=== PATIENT | female | born 1960 | race African-American/Black ===

== ENCOUNTER 2018-09-15 08:54 | Inpatient (IN) | payer MEDICAID, OTHER ==
[~2018-09-15] VITALS: Ht 167.6 cm; Wt 75.8 kg
[2018-09-15 10:30] LABS: BASOPHILS % 0.6 % (0.0-2.0); EOSINOPHILS % 0.2 % (0.0-5.0); HEMATOCRIT. 40.7 % (36.0-48.0); HEMOGLOBIN. 13.6 g/dL (12.0-16.0); LYMPHOCYTES % 15.9 % (20.0-50.0); MEAN CORPUSCULAR HEMOGLOBIN 30.6 pg (28.0-32.0); MEAN CORPUSCULAR VOLUME 91.7 fL (81.0-99.0); MONOCYTES % 5.4 % (2.0-8.0); NEUTROPHILS % 77.9 % (40.0-76.0); PLATELET 325 x1000/uL (130-400); RED BLOOD CELL COUNT 4.44 mill/uL (4.2-5.4); RED CELL DISTRIBUTION WIDTH 14.7 % (11.6-14.6)
[2018-09-15 10:36] LABS: CHLORIDE 103 mEq/L (98-107)
[2018-09-15] MEDS ORDERED: ASPIRIN 325MG EC TABLET PO ONE (11:45)
[2018-09-15] MEDS ORDERED: MAGNESIUM/ALUMINUM HYDROXIDE/SIMETHICONE 30ML UDC PO PRN (12:30)
[2018-09-15] MEDS ORDERED: DOCUSATE SODIUM 100MG CAPSULE PO PRN (12:30)
[2018-09-15] MEDS ORDERED: ONDANSETRON HCL 4MG/2ML INJ IV PRN (12:30)
[2018-09-15] MEDS ORDERED: HYDROCODONE/ACETAMINOPHEN 5/325MG TABLET PO PRN (12:30)
[2018-09-15] MEDS ORDERED: IPRATROPIUM/ALBUTEROL 0.5-3(2.5)MG/3ML NEB INH PRN (12:30)
[2018-09-15] MEDS ORDERED: ACETAMINOPHEN 325MG TABLET PO PRN (12:30)
[2018-09-15] MEDS ORDERED: CLONIDINE 0.1MG TABLET PO PRN (12:30)
[2018-09-15] MEDS ORDERED: GUAIFENESIN 200MG/10ML SUGAR FREE UDC PO PRN (12:30)
[2018-09-15 15:44] LABS: *BARBITURATES SCREEN URINE NEGATIVE (NEGATIVE); *BENZODIAZEPINES SCREEN URINE NEGATIVE (NEGATIVE); *COCAINE SCREEN URINE NEGATIVE (NEGATIVE); CANNABINOID URINE SCREEN NEGATIVE (NEGATIVE); METHADONE URINE SCREEN NEGATIVE (NEGATIVE); OPIATES URINE SCREEN NEGATIVE (NEGATIVE); PHENCYCLIDINE URINE SCREEN NEGATIVE (NEGATIVE)
[2018-09-15 15:45] LABS: *AMPHETAMINES SCREEN URINE NEGATIVE (NEGATIVE)
[2018-09-15] MEDS ORDERED: LISINOPRIL 10MG TABLET PO NR (15:45)
[2018-09-15] MEDS ORDERED: ENOXAPARIN 40MG/0.4ML SYR SUBCUT NR (19:00)
[2018-09-15 20:18] LABS: CREATINE KINASE 85 IU/L (26-192)
[2018-09-15 22:50] VITALS: BP 134/79
[2018-09-15 23:23] VITALS: BP 134/79
[2018-09-15] MEDS: LISINOPRIL 10MG TABLET PO SCH (23:43)
[2018-09-16] MEDS ORDERED: DEXTROSE 50% WATER 50ML SYRINGE IV PRN
[2018-09-16] MEDS ORDERED: ASPI-1158 PO (00:09)
[2018-09-16] MEDS ORDERED: LISI-604 PO (00:09)
[2018-09-16 04:00] VITALS: BP 127/78
[2018-09-16] MEDS ORDERED: BLOOD SUGAR DIAGNOSTIC STRIP TEST SCH (06:45)
[2018-09-16] MEDS ORDERED: INSULIN LISPRO 100 UNITS/ML SUBCUT SCH (07:15)
[2018-09-16 07:16] LABS: BASOPHILS % 0.5 % (0.0-2.0); EOSINOPHILS % 0.6 % (0.0-5.0); HEMATOCRIT. 40.5 % (36.0-48.0); HEMOGLOBIN. 13.6 g/dL (12.0-16.0); LYMPHOCYTES % 22.9 % (20.0-50.0); MEAN CORPUSCULAR HEMOGLOBIN 30.8 pg (28.0-32.0); MEAN CORPUSCULAR VOLUME 91.9 fL (81.0-99.0); MEAN PLATELET VOLUME 8.3 fl (7.4-10.4); MONOCYTES % 7.4 % (2.0-8.0); NEUTROPHILS % 68.6 % (40.0-76.0); PLATELET 303 x1000/uL (130-400); RED BLOOD CELL COUNT 4.41 mill/uL (4.2-5.4); RED CELL DISTRIBUTION WIDTH 14.6 % (11.6-14.6)
[2018-09-16 07:24] LABS: CHLORIDE 105 mEq/L (98-107)
[2018-09-16 07:33] LABS: LDL CHOLESTEROL 96 mg/dL (5-100)
[2018-09-16 07:35] LABS: HDL CHOLESTEROL 61 mg/dL (40-59)
[2018-09-16 08:00] VITALS: BP 141/77
[2018-09-16] MEDS ORDERED: ASPIRIN 81MG EC TABLET PO SCH (09:00)
[2018-09-16] MEDS: LISINOPRIL 10MG TABLET PO SCH (09:24)
[2018-09-16] MEDS ORDERED: REGADENOSON 0.4 MG/5 ML IV NR (09:30)
[2018-09-16 12:00] VITALS: BP 135/72
[2018-09-16] MEDS ORDERED: REGADENOSON 0.4 MG/5 ML IV ONE (12:14)
[2018-09-16 15:15] VITALS: BP 122/79
[2018-09-16] MEDS ORDERED: ENOXAPARIN 40MG/0.4ML SYR SUBCUT SCH (21:00)
== END 2018-09-16 16:00 | disposition home or self-care (01) | DRG 48 ==
LOC: ER 08:54 → 5WST 11:59 → ENRESERV 19:56 → 5WST 23:58
PROVIDERS: ADMIT Internal Medicine; ATTEND Internal Medicine
DX: G90.8 Other disorders of autonomic nervous system (principal); I10 Essential (primary) hypertension; K21.9 Gastro-esophageal reflux disease without esophagitis; R07.89 Other chest pain; R73.9 Hyperglycemia, unspecified; Z91.14 Patient's other noncompliance with medication regimen; Z79.82 Long term (current) use of aspirin; Z82.49 Family history of ischemic heart disease and other diseases of the circulatory system; Z79.899 Other long term (current) drug therapy; M94.0 Chondrocostal junction syndrome [Tietze]
CPT/HCPCS: 36415; 71045; 78452; 80048; 80061; 80305; 82550; 82962; 83036; 83735; 83880; 84100; 84443; 84484; 93005; 93017; 93306; 93970; 96374; 96375; 99285; A9500; J1650; J2785